=== PATIENT | male | born 1965 | race Caucasian/White ===

== ENCOUNTER 2021-01-24 10:34 | Outpatient (CLI) | payer OTHER, SELFPAY ==
--- NOTE | ~2021-01-24 | MR_ITS ---
EXAMINATION: MR shoulder LT wo con DATE: 01/24/2021 11:17 INDICATION: Left shoulder pain TECHNIQUE: Magnetic resonance imaging (MRI) of the left shoulder was performed without intravenous co ntrast. Sequences included axial PD-weighted FS FSE, coronal oblique PD-weighted FS FSE, coronal obli que T2-weighted FS FSE, sagittal PD-weighted FS FSE, and sagittal T1-weighted SE. COMPARISON: None. FINDINGS: Coracoacromial arch: The acromion undersurface is curved in morphology (type II). The coracoacromial ligament is normal. M ild acromioclavicular osteoarthritis with small inferiorly directed osteophyte. Rotator cuff: Mild supraspinatus and minimal infraspinatus tendinopathy. There is a full-thickness tear measuring 1 2 mm AP at the critical zone of the supraspinatus tendon approximately 0.5-1 cm from the superior fac et footplate. The tear extends an additional 10 mm posteriorly into the conjoined portion of the supr aspinatus and infraspinatus tendons as a progressively decreasing severity partial-thickness articula r sided tear. There is no significant medial retraction of the tear margin. The teres minor tendon is normal. Mild subscapularis tendinopathy. There is a small intrasubstance ganglion cyst extending ira ng a longitudinal split tear at the central aspect of the distal subscapularis tendon. The ganglion c yst extends 2.5 cm medially from the lesser tuberosity footplate and measures up to 6 x 3 mm in maxim al orthogonal dimensions. Normal rotator cuff muscle bulk and signal. Biceps tendon, glenoid labrum and glenohumeral cartilage: Long head of the biceps tendon is normal. Glenoid labrum is normal. Glenohumeral cartilage is normal. Fluid: Physiologic amount of fluid in the glenohumeral joint and biceps tendon sheath. No loose osteochondra l bodies. Small amount of fluid in the subacromial/subdeltoid bursa likely decompressing from the gle nohumeral joint space through the full-thickness rotator cuff tear defect. Bones: Normal marrow signal with no edema, fracture or pathologic marrow replacing process. Mild cystic marin ge at the lesser tuberosity footplate of the subscapularis tendon. Additional mild subarticular cysti c change at the anterior margin of the clavicle. IMPRESSION: 1. Mild to moderate supraspinatus tendinopathy with small full-thickness tear at the critical zone of the supraspinatus tendon transitioning to an articular sided tear at the conjoined portion of the crespo praspinatus and infraspinatus tendons. 2. Mild subscapularis tendinopathy with small intrasubstance ganglion cyst extending along a longitud inal split tear in the distal tendon. 3. Mild acromioclavicular osteoarthritis. Reviewed, dictated and finalized at location A. [employer] IMPRESSION: 1. Mild to moderate supraspinatus tendinopathy with small full-thickness tear a t the critical zone of the supraspinatus tendon transitioning to an articular s ided tear at the conjoined portion of the supraspinatus and infraspinatus tendo ns. 2. Mild subscapularis tendinopathy with small intrasubstance ganglion cyst exte nding along a longitudinal split tear in the distal tendon. 3. Mild acromioclavicular osteoarthritis.
== END 2021-01-24 10:35 ==
PROVIDERS: PCP Family Medicine; Visit Provider Orthopaedic Surgery
DX: M25.512 Pain in left shoulder (principal); G89.29 Other chronic pain; M75.82 Other shoulder lesions, left shoulder; M67.412 Ganglion, left shoulder; M19.012 Primary osteoarthritis, left shoulder
CPT/HCPCS: 73221

== ENCOUNTER → 2021-01-24 10:36 | Outpatient (CLI) | payer BC, SELFPAY ==
--- NOTE | ~2021-01-24 | XR_ITS ---
EXAMINATION: XR hand RT min 3V DATE: 01/24/2021 11:29 INDICATION: Right hand pain TECHNIQUE: Posteroanterior, oblique and lateral views of the right hand were obtained. COMPARISON: None. FINDINGS: Alignment is normal. No fracture. Minimal to mild polyarticular osteoarthritis throughout the right h and. This includes mild nonuniform joint space narrowing at the triscaphe and first carpal metacarpal joints and relatively preserved joint spaces but with tiny marginal osteophytes at the first-third m etacarpophalangeal and multiple predominantly distal interphalangeal joints. No erosions to suggest i nflammatory arthritis. Soft tissues are unremarkable. IMPRESSION: 1. Typical distribution minimal to mild polyarticular osteoarthritis at the right hand. Reviewed, dictated and finalized at location A. [employer] IMPRESSION: 1. Typical distribution minimal to mild polyarticular osteoarthritis at the rig ht hand.
== END ==
PROVIDERS: Visit Provider Family Medicine
DX: M79.641 Pain in right hand (principal); M19.041 Primary osteoarthritis, right hand
CPT/HCPCS: 73130